=== PATIENT | female | born 1950 | race Hispanic/Latino ===

== ENCOUNTER 2019-12-18 10:12 | Inpatient (IN) | payer MEDICARE, OTHER ==
[2019-12-18] MEDS ORDERED: SODIUM CHLORIDE 0.9% 1000 ML 1,000 ML IV ONE (11:12)
--- NOTE | 2019-12-18 11:36 | XRay Report ---
CHEST 1 VIEW INDICATION / CLINICAL INFORMATION: weakness. COMPARISON: None available. FINDINGS: SUPPORT DEVICES: Left central venous line HEART / MEDIASTINUM: No significant abnormality. LUNGS / PLEURA: No significant pulmonary or pleural abnormality. No pneumothorax. ADDITIONAL FINDINGS: No significant additional findings. IMPRESSION: No acute pulmonary or pleural abnormality. Signer Name: Rick Castañeda MD FACR Signed: 12/18/2019 11:31 AM Workstation Name: [id number]
--- NOTE | 2019-12-18 13:21 | Emergency Department Report ---
- General Chief complaint: Weakness Stated complaint: WEAKNESS Time Seen by Provider: 12/18/19 10:56 Source: patient, EMS Mode of arrival: Stretcher Limitations: Physical Limitation - History of Present Illness Initial comments: 69-year-old female, history of diabetes and lymphedema, presents to ED with generalized weakness since yesterday. Patient states today her had to help her off of the toilet because she was so generally weak. Patient also complaining of pain in the left leg. There is redness present. Patient is unsure when the redness began, she states maybe yesterday. She denies any fever, chest pain, shortness of breath, vomiting, diarrhea. MD Complaint: generalized weakness -: days(s) (2) Location: generalized Severity scale (0 -10): 0 Consistency: constant Improves with: none Worsens with: none Associated Symptoms: denies: chest pain, fever/chills, nausea/vomiting, shortness of breath - Related Data Previous Rx's Medication Instructions Recorded Last Taken Type Cyclobenzaprine [Flexeril 10mg] 10 mg PO TID PRN #12 tablet 09/08/13 Unknown Rx oxyCODONE /ACETAMINOPHEN [Percocet 1 tab PO Q6HR PRN #20 tablet 09/08/13 Unknown Rx 5/325] Allergies Allergy/AdvReac Type Severity Reaction Status Date / Time No Known Allergies Allergy Unverified 09/07/13 18:45 ED Review of Systems ROS: Stated complaint: WEAKNESS Other details as noted in HPI Comment: All other systems reviewed and negative Constitutional: denies: chills, fever Respiratory: denies: cough, shortness of breath Cardiovascular: denies: chest pain Gastrointestinal: denies: abdominal pain, vomiting, diarrhea Musculoskeletal: as per HPI ED Past Medical Hx - Past Medical History Hx Diabetes: Yes - Surgical History Additional Surgical History: x 3. partial hysterectomy. bilateral h ip replacement. port placement. lump and 25 lymph nodes removed. left shoulder surgery - Social History Smoking Status: Never Smoker Substance Use Type: None - Medications Home Medications: Home Medications Medication Instructions Recorded Confirmed Last Taken Type Cyclobenzaprine [Flexeril 10mg] 10 mg PO TID PRN #12 tablet 09/08/13 Unknown Rx oxyCODONE /ACETAMINOPHEN [Percocet 1 tab PO Q6HR PRN #20 tablet 09/08/13 Unknown Rx 5/325] ED Physical Exam - General Limitations: Physical Limitation General appearance: alert, in no apparent distress - Head Head exam: Present: atraumatic, normocephalic - Eye Eye exam: Present: normal appearance - ENT ENT exam: Present: mucous membranes dry - Neck Neck exam: Present: normal inspection - Respiratory Respiratory exam: Present: normal lung sounds bilaterally. Absent: respiratory distress - Cardiovascular Cardiovascular Exam: Present: normal rhythm, tachycardia - GI/Abdominal GI/Abdominal exam: Present: soft. Absent: distended, tenderness - Extremities Exam Extremities exam: Present: other (Erythema present to left lower leg with tenderness to palpation) - Neurological Exam Neurological exam: Present: alert, oriented X3 - Psychiatric Psychiatric exam: Present: normal affect, normal mood - Skin Skin exam: Present: warm, dry, intact, normal color ED Course Vital Signs 12/18/19 12/18/19 12/18/19 10:27 10:31 10:39 Temperature 97.8 F Pulse Rate 106 H 104 H 102 H Respiratory 15 18 19 Rate Blood Pressure 130/58 Blood Pressure 130/58 [Left] O2 Sat by Pulse 100 100 99 Oximetry 12/18/19 12/18/19 12/18/19 10:45 11:00 11:15 Temperature Pulse Rate 94 H 90 103 H Respiratory 14 19 20 Rate Blood Pressure 130/58 126/54 126/54 Blood Pressure [Left] O2 Sat by Pulse 100 100 100 Oximetry 12/18/19 12/18/19 12/18/19 11:31 11:45 12:01 Temperature Pulse Rate 101 H 102 H 96 H Respiratory 19 21 19 Rate Blood Pressure 126/54 126/54 116/56 Blood Pressure [Left] O2 Sat by Pulse 100 100 100 Oximetry 12/18/19 12/18/19 12/18/19 12:16 12:31 12:45 Temperature Pulse Rate 97 H 109 H 107 H Respiratory 19 12 18 Rate Blood Pressure 116/56 116/56 Blood Pressure [Left] O2 Sat by Pulse 100 100 100 Oximetry 12/18/19 12/18/19 12/18/19 13:01 13:15 13:31 Temperature Pulse Rate 107 H 106 H 100 H Respiratory 22 20 21 Rate Blood Pressure 135/54 135/54 135/54 Blood Pressure [Left] O2 Sat by Pulse 100 100 100 Oximetry 12/18/19 12/18/19 12/18/19 13:45 14:00 14:15 Temperature Pulse Rate 118 H 104 H 111 H Respiratory 20 19 18 Rate Blood Pressure 135/54 121/61 121/61 Blood Pressure [Left] O2 Sat by Pulse 100 100 99 Oximetry 12/18/19 12/18/19 12/18/19 14:31 14:45 15:01 Temperature Pulse Rate 92 H 108 H 106 H Respiratory 19 18 20 Rate Blood Pressure 121/61 121/61 128/63 Blood Pressure [Left] O2 Sat by Pulse 98 99 99 Oximetry 12/18/19 12/18/19 12/18/19 15:15 15:45 16:01 Temperature Pulse Rate 109 H 107 H 92 H Respiratory 19 14 21 Rate Blood Pressure 128/63 128/63 128/63 Blood Pressure [Left] O2 Sat by Pulse 96 99 94 Oximetry 12/18/19 12/18/19 12/18/19 16:15 16:31 16:45 Temperature Pulse Rate 94 H 97 H 92 H Respiratory 20 19 18 Rate Blood Pressure 128/63 128/63 128/63 Blood Pressure [Left] O2 Sat by Pulse 96 96 97 Oximetry 12/18/19 12/18/19 17:01 17:31 Temperature Pulse Rate 109 H 105 H Respiratory 19 16 Rate Blood Pressure 128/63 128/63 Blood Pressure [Left] O2 Sat by Pulse 98 91 Oximetry ED Medical Decision Making - Lab Data Result diagrams: 12/18/19 12:49 12/18/19 12:49 - Medical Decision Making 69-year-old female presents to ED with generalized weakness and pain and redness to the left leg. Patient has extensive cellulitis located in the left lower leg. Vital signs are stable, patient afebrile. WBCs elevated to 19.9. Glucose is slightly elevated at 180, however patient does not appear to be in DKA. IV clindamycin initiated for cellulitis. Spoke with hospitalist, Dr. Monson, for admission and further management. Dr. Monson would like CT of the lower extremity to further assess extent of patient's cellulitis. - Differential Diagnosis Dehydration, DKA, cellulitis Critical care attestation.: If time is entered above; I have spent that time in minutes in the direct care of this critically ill patient, excluding procedure time. ED Disposition Clinical Impression: Cellulitis of left leg, Generalized weakness Disposition: - OP ADMIT IP TO THIS HOSP Is pt being admited?: Yes Condition: Stable Time of Disposition: 15:19
[2019-12-18 13:31] LABS: Hematocrit 38.1 % (30.3-42.9); Hemoglobin 13.1 gm/dl (10.1-14.3); Mean Corpuscular HGB Conc 35 % (30-34); Mean Corpuscular Volume 95 fl (79-97); Platelet Count 140 K/mm3 (140-440); Red Blood Count 4.03 M/mm3 (3.65-5.03); Red Cell Distribution Width 14.8 % (13.2-15.2)
[2019-12-18 13:51] LABS: BUN/Creatinine Ratio 34; Blood Urea Nitrogen 31 mg/dL (7-17); Calcium 10.6 mg/dL (8.4-10.2); Hemolysis Index 10
--- NOTE | 2019-12-18 14:59 | History and Physical Report ---
History of Present Illness Chief complaint: My leg hurts and I feel weak History of present illness: 69 YO Female with DM, Obesity Hypoventilation Syndrome, Lymphedema, Chronic Pain Syndrome presents to ED for evaluation. Patient states that she has experienced redness and pain to her left leg over the past 4 days with persistently worsening symptoms over the same timeframe. Patient also acknowledges generalized weakness. Patient states that she is unable to bear weight on the left leg without pain. EMS was notified and upon arrival the patient was found to be in distress and subsequently transported to [facility] for further care and evaluation of the aforementioned symptoms. Patient seen and evaluated in the e mergency department. All lab and imaging studies reviewed. Patient found to have left lower extremity cellulitis complicated by sepsis, metabolic acidosis. Patient initiated on sepsis protocol and admitted to medical floor. CT scan of the left lower extremity is ordered in the emergency department and is pending at the time of my admission. Patient denies fever, chills, chest pain, palpitations, productive cough, recent ill contacts, or known exposure to COVID- 19. All medication listed at time of admission has been reconciled. No prior admission for review. Advanced care planning conducted in the emergency department. Past History Past Medical History: diabetes, other (See HPI) Past Surgical History: , hysterectomy, total hip replacement, Other (. port placement. lump and 25 lymph nodes removed. left shoulder surgery) Social history: . denies: smoking, alcohol abuse, prescription drug abuse Family history: diabetes, hypertension Medications and Allergies Allergies Allergy/AdvReac Type Severity Reaction Status Date / Time No Known Allergies Allergy Unverified 09/07/13 18:45 Home Medications Medication Instructions Recorded Confirmed Last Taken Type Cyclobenzaprine [Flexeril 10mg] 10 mg PO TID PRN #12 tablet 09/08/13 Unknown Rx oxyCODONE /ACETAMINOPHEN [Percocet 1 tab PO Q6HR PRN #20 tablet 09/08/13 Unknown Rx 5/325] Review of Systems Constitutional: no weight loss, no weight gain, no fever, no chills Ears, nose, mouth and throat: no ear pain, no ear discharge, no tinnitis, no decreased hearing, no nose pain, no nasal congestion Breasts: no change in shape, no swelling, no mass Cardiovascular: no chest pain, no orthopnea, no palpitations, no rapid/irregular heart beat, no edema Respiratory: no cough, no cough with sputum, no excessive sputum, no hemoptysis Gastrointestinal: no abdominal pain, no nausea, no diarrhea, no coffee ground emesis Genitourinary Female: no pelvic pain, no flank pain, no dysuria Rectal: no pain, no incontinence, no bleeding Musculoskeletal: no neck stiffness, no neck pain, no shooting arm pain, no arm numbness/tingling, no low back pain Integumentary: no rash, no pruritis, no redness, no sores, no wounds Neurological: no head injury, no paralysis, no parathesias, no tingling, no seizures, no syncope Psychiatric: no anxiety, no memory loss, no sleep disturbances, no insomnia, no hypersomnia, no suicidal ideation Endocrine: no cold intolerance, no heat intolerance, no polyphagia, no excessive thirst, no polyuria, no nocturia Hematologic/Lymphatic: no easy bruising, no easy bleeding, no lymphedema Allergic/Immunologic: no allergic rhinitis, no wheezing, no anaphylaxis, no angioedema Exam - Constitutional Vitals: Temp Pulse Resp BP Pulse Ox 97.8 F 102 H 19 130/58 99 12/18/19 10:39 12/18/19 10:39 12/18/19 10:39 12/18/19 10:39 12/18/19 10:39 General appearance: Present: mild distress - EENT Eyes: Present: PERRL ENT: hearing intact, clear oral mucosa - Neck Neck: Present: supple, normal ROM - Respiratory Respiratory effort: normal Respiratory: bilateral: CTA - Cardiovascular Heart Sounds: Present: S1 & S2. Absent: rub, click - Extremities Extremities: pulses symmetrical Extremity abnormal: edema, erythema, tenderness Peripheral Pulses: abnormal (Capillary refill greater than 3.5 seconds) - Abdominal General gastrointestinal: Present: soft, non-tender, non-distended, normal bowel sounds Female genitourinary: Present: normal - Integumentary Integumentary: Present: clear, warm, dry - Musculoskeletal Musculoskeletal: gait normal, strength equal bilaterally - Psychiatric Psychiatric: appropriate mood/affect, intact judgment & insight - Neurologic Neurologic: CNII-XII intact, moves all extremities HEART Score - HEART Score Troponin: Troponin T < 0.010 ng/mL (0.00-0.029) 12/18/19 12:49 Results - Labs CBC & Chem 7: 12/18/19 12:49 12/18/19 12:49 Labs: Abnormal lab results 12/18/19 12/18/19 12/18/19 Range/Units 12:49 12:49 12:49 WBC 19.9 H (4.5-11.0) K/mm3 MCH 33 H (28-32) pg MCHC 35 H (30-34) % VBG pH (7.320-7.420) Carbon Dioxide 20 L (22-30) mmol/L BUN 31 H (7-17) mg/dL Glucose 180 H (65-100) mg/dL Calcium 10.6 H (8.4-10.2) mg/dL NT-Pro-B Natriuret Pep 1930 H (0-900) pg/mL 12/18/19 Range/Units 12:49 WBC (4.5-11.0) K/mm3 MCH (28-32) pg MCHC (30-34) % VBG pH 7.304 L (7.320-7.420) Carbon Dioxide (22-30) mmol/L BUN (7-17) mg/dL Glucose (65-100) mg/dL Calcium (8.4-10.2) mg/dL NT-Pro-B Natriuret Pep (0-900) pg/mL Assessment and Plan - Patient Problems (1) Sepsis Current Visit: Yes Status: Acute (2) Acidosis Current Visit: Yes Status: Acute (3) Diabetes mellitus Current Visit: Yes Status: Acute Plan to address problem: Sliding scale insulin therapy, Accu-Chek, consistent carbohydrate diet, hypoglycemia protocol (4) Cellulitis of left leg Current Visit: Yes Status: Acute Plan to address problem: CT scan left lower extremity, CBC, IV antibiotic therapy, wound care consulted. (5) Chronic pain syndrome Current Visit: Yes Status: Acute Plan to address problem: Supportive care, pain regimen ordered. Nursing care pain evaluation as per routine. (6) DVT prophylaxis Current Visit: Yes Status: Acute Plan to address problem: Prophylactic anticoagulation, supportive care. (7) Advance care planning Current Visit: Yes Status: Acute Plan to address problem: Disease education conducted, patient is full code, prognosis discussed, patient knowledges understanding and agreement with care plan, +30 minutes.
[2019-12-18 15:32] LABS: Anisocytosis Few; Band Neutrophils # (Manual) 4.2 K/mm3; Basophils % (Manual) 0 % (0.0-1.8); Eosinophils % (Manual) 0 % (0.0-4.3); Macrocytosis Few; Total Cells Counted 100
[2019-12-18 15:33] LABS: Platelet Estimate Consistent w Auto
[2019-12-18] MEDS ORDERED: ONDANSETRON 4 MG/2 ML INJ IV PRN (16:04)
[2019-12-18] MEDS ORDERED: MORPHINE 4 MG/1 ML INJ IV PRN (16:04)
[2019-12-18] MEDS ORDERED: ALBUTEROL 2.5 MG/3 ML NEBU IH PRN (16:04)
[2019-12-18] MEDS ORDERED: ACETAMINOPHEN 325 MG TAB PO PRN ×2 (16:04)
[2019-12-18] MEDS ORDERED: SODIUM CHLORIDE 0.9% 1000 ML IV SOLN IV ONE (16:04)
--- NOTE | 2019-12-18 16:15 | Cat Scan Report ---
CT LOWER EXTREMITY LEFT WITH CONTRAST INDICATION : swelling, erythema. TECHNIQUE: Axial imaging performed through the left lower extremity following 100 cc of Omnipaque 30 0 intravenously. Sagittal and coronal reformatted images. All CT scans at this location are performed using CT dose reduction for ALARA by means of automated exposure control. COMPARISON: None at this facility FINDINGS: Imaging was performed just superior to the left knee through the left foot. There is nonspe cific diffuse subcutaneous edema and skin thickening in the visualized left lower extremity. This cou ld represent a nonspecific cellulitis. There is no evidence for abscess or soft tissue gas. The bony structures are mildly demineralized but intact. No fracture or suspicious bony lesion is appreciated. Moderate osteoarthritic changes are identified at the knee and ankle. A focal bone infarct in the la teral femoral condyle measures 2.0 x 1.4 cm in axial plane. The vascular structures appear widely pat ent and unremarkable. IMPRESSION: Diffuse subcutaneous edema and skin thickening consistent with cellulitis. No evidence fo r abscess or osteomyelitis on CT with contrast. Degenerative changes at the knee and ankle. 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 Signer Name: Mert Medina Jr, MD Signed: 12/18/2019 4:10 PM Workstation Name: [id number]
[2019-12-18] MEDS ORDERED: DEXTROSE 50% IN WATER (25GM) 50 ML SYRINGE IV PRN (16:16)
[2019-12-18] MEDS ORDERED: VANCOMYCIN 2,000 MG in SODIUM CHLORIDE 0.9% 500 ML 500 ML IV ONE (16:30)
[2019-12-18] MEDS ORDERED: SODIUM CHLORIDE 0.9% 1000 ML 1,000 ML ONE (16:51)
[2019-12-18] MEDS: INSULIN LISPRO 100 UNIT/ML VIAL 3 mL SUB-Q SCH ×2 (17:00→23:13)
[2019-12-18] MEDS ORDERED: VANCOMYCIN PHARMACY TO DOSE IV SCH (17:00)
[2019-12-18] MEDS ORDERED: HYDROmorphone 1 MG/1 ML INJ ONE (17:19)
[2019-12-18] MEDS: HYDROmorphone 1 MG/1 ML INJ IV PRN (17:26)
[2019-12-18] MEDS: oxyCODONE /ACETAMINOPHEN 5-325MG TAB PO PRN (20:16)
[2019-12-18] MEDS: SODIUM CHLORIDE 0.9% 1000 ML 1,000 ML IV SCH (22:54)
[2019-12-18] MEDS: HEPARIN 5,000 UNIT/1 ML VIAL SUB-Q SCH (22:55)
[2019-12-18] MEDS: CLINDAMYCIN 600 MG/50 mL 600 MG/50 ML BAG IV SCH (22:55)
[2019-12-19] MEDS ORDERED: VANCOMYCIN/NS 1 GM/250 ML 1 GM/250 ML BAG IV SCH (04:00)
[2019-12-19] MEDS: CLINDAMYCIN 600 MG/50 mL 600 MG/50 ML BAG IV SCH ×3 (05:06→21:40)
[2019-12-19] MEDS: oxyCODONE /ACETAMINOPHEN 5-325MG TAB PO PRN ×2 (06:47→22:40)
[2019-12-19 07:12] LABS: Bacteria,Urine 4+ /HPF (Negative); Bilirubin,Urine NEG (Negative); Blood,Urine NEG (Negative); Color,Urine Amber (Yellow); Mucus,Urine FEW /HPF; Urobilinogen,Urine < 2.0 mg/dL (<2.0)
[2019-12-19] MEDS: INSULIN LISPRO 100 UNIT/ML VIAL 3 mL SUB-Q SCH ×4 (07:30→21:34)
[2019-12-19] MEDS: HEPARIN 5,000 UNIT/1 ML VIAL SUB-Q SCH ×2 (10:48→21:32)
[2019-12-19] MEDS: SODIUM CHLORIDE 0.9% 1000 ML 1,000 ML IV SCH (19:52)
[2019-12-19] MEDS: VANCOMYCIN 1,500 MG in SODIUM CHLORIDE 0.9% 500 ML 500 ML IV SCH (21:31)
[2019-12-19 23:30] LABS: BUN/Creatinine Ratio 32; Blood Urea Nitrogen 29 mg/dL (7-17); Calcium 8.9 mg/dL (8.4-10.2); Hemolysis Index 5
[2019-12-19 23:42] LABS: Hematocrit 29.2 % (30.3-42.9); Hemoglobin 10.2 gm/dl (10.1-14.3); Mean Corpuscular HGB Conc 35 % (30-34); Mean Corpuscular Volume 94 fl (79-97); Platelet Count 115 K/mm3 (140-440); Red Blood Count 3.11 M/mm3 (3.65-5.03); Red Cell Distribution Width 14.7 % (13.2-15.2)
[2019-12-20 03:35] LABS: Basophils % (Manual) 0 % (0.0-1.8); Total Cells Counted 100
[2019-12-20 03:36] LABS: Anisocytosis Few
[2019-12-20 03:37] LABS: Platelet Estimate Consistent w Auto
[2019-12-20] MEDS: HYDROmorphone 1 MG/1 ML INJ IV PRN (03:47)
[2019-12-20] MEDS: CLINDAMYCIN 600 MG/50 mL 600 MG/50 ML BAG IV SCH ×3 (05:51→22:22)
[2019-12-20] MEDS: INSULIN LISPRO 100 UNIT/ML VIAL 3 mL SUB-Q SCH ×4 (07:30→22:00)
[2019-12-20] MEDS: HEPARIN 5,000 UNIT/1 ML VIAL SUB-Q SCH ×2 (09:30→22:23)
--- NOTE | 2019-12-20 09:40 | Progress Note ---
Assessment and Plan Assessment and Plan - Patient Problems (1) Sepsis Current Visit: Yes Status: Acute Continue current antibiotics (2) Acidosis Current Visit: Yes Status: Acute (3) Diabetes mellitus Current Visit: Yes Status: Acute Plan to address problem: Sliding scale insulin therapy, Accu-Chek, consistent carbohydrate diet, hypoglycemia protocol (4) Cellulitis of left leg Current Visit: Yes Status: Acute Plan to address problem: Continue current IV antibiotics Also triamcinolone cream for the stasis dermatitis (5) Chronic pain syndrome Current Visit: Yes Status: Acute Plan to address problem: Supportive care, pain regimen ordered. Nursing care pain evaluation as per routine. (6) DVT prophylaxis Current Visit: Yes Status: Acute Plan to address problem: Prophylactic anticoagulation, supportive care. (7) Advance care planning Current Visit: Yes Status: Acute Plan to address problem: Disease education conducted, patient is full code, prognosis discussed, patient knowledges understanding and agreement with care plan, +30 minutes. Subjective Date of service: 12/19/19 Principal diagnosis: LLE Cellulitis Interval history: 69 YO Female with DM, Obesity Hypoventilation Syndrome, Lymphedema, Chronic Pain Syndrome presents to ED for evaluation. Patient states that she has experienced redness and pain to her left leg over the past 4 days with persistently worsening symptoms over the same timeframe. Patient also acknowledges generalized weakness. Patient states that she is unable to bear weight on the left leg without pain. EMS was notified and upon arrival the patient was found to be in distress and subsequently transported to [facility] for further care and evaluation of the aforementioned symptoms. Patient seen and evaluated in the emergency department. All lab and imaging studies reviewed. Patient found to have left lower extremity cellulitis complicated by sepsis, metabolic acidosis. Patient initiated on sepsis protocol and admitted to medical floor. CT scan of the left lower extremity is ordered in the emergency department and is pending at the time of my admission. Patient denies fever, chills, chest pain, palpitations, productive cough, recent ill contacts, or known exposure to COVID- 19. All medication listed at time of admission has been reconciled. No prior admission for review. Advanced care planning conducted in the emergency department. Objective - Constitutional Vitals: Vital Signs - 12hr 12/19/19 12/19/19 12/19/19 22:00 22:40 23:40 Temperature Pulse Rate Respiratory 19 19 17 Rate Blood Pressure O2 Sat by Pulse 97 Oximetry 12/20/19 12/20/19 12/20/19 03:47 04:17 04:30 Temperature 98.3 F Pulse Rate 82 Respiratory 18 17 16 Rate Blood Pressure 134/62 O2 Sat by Pulse 91 Oximetry 12/20/19 06:37 Temperature Pulse Rate Respiratory Rate Blood Pressure O2 Sat by Pulse 96 Oximetry General appearance: Present: no acute distress, well-nourished - EENT Eyes: PERRL, EOM intact ENT: hearing intact, clear oral mucosa Ears: bilateral: normal - Neck Neck: supple, normal ROM - Respiratory Respiratory effort: normal Respiratory: bilateral: CTA - Breasts Breasts: normal - Cardiovascular Heart rate: 78 Rhythm: regular Heart Sounds: Present: S1 & S2. Absent: gallop, rub Extremities: pulses intact, No edema, normal color, Full ROM, abnormal (Stasis dermatitis) - Gastrointestinal General gastrointestinal: Present: soft, non-tender, non-distended, normal bowel sounds - Genitourinary Female genitourinary: normal - Integumentary Integumentary: clear, warm, dry - Musculoskeletal Musculoskeletal: 1, strength equal bilaterally - Neurologic Neurologic: moves all extremities - Psychiatric Psychiatric: memory intact, appropriate mood/affect, intact judgment & insight - Labs CBC & Chem 7: 12/23/19 08:32 12/23/19 08:32 Labs: Abnormal lab results 12/19/19 12/19/19 12/19/19 Range/Units 11:34 16:43 21:35 WBC (4.5-11.0) K/mm3 RBC (3.65-5.03) M/mm3 Hct (30.3-42.9) % MCH (28-32) pg MCHC (30-34) % Plt Count (140-440) K/mm3 Seg Neuts % (Manual) (40.0-70.0) % Lymphocytes % (Manual) (13.4-35.0) % Seg Neutrophils # Man (1.8-7.7) K/mm3 Lymphocytes # (Manual) (1.2-5.4) K/mm3 Sodium (137-145) mmol/L Carbon Dioxide (22-30) mmol/L BUN (7-17) mg/dL Glucose (65-100) mg/dL POC Glucose 133 H 137 H 188 H (70-105) 1012/19/19 12/20/19 Range/Units 22:51 22:51 07:50 WBC 16.0 H (4.5-11.0) K/mm3 RBC 3.11 L (3.65-5.03) M/mm3 Hct 29.2 L D (30.3-42.9) % MCH 33 H (28-32) pg MCHC 35 H (30-34) % Plt Count 115 L (140-440) K/mm3 Seg Neuts % (Manual) 91.0 H (40.0-70.0) % Lymphocytes % (Manual) 4.0 L (13.4-35.0) % Seg Neutrophils # Man 14.6 H (1.8-7.7) K/mm3 Lymphocytes # (Manual) 0.6 L (1.2-5.4) K/mm3 Sodium 136 L (137-145) mmol/L Carbon Dioxide 20 L (22-30) mmol/L BUN 29 H (7-17) mg/dL Glucose 127 H (65-100) mg/dL POC Glucose 116 H (70-105) HEART Score - HEART Score Troponin: Troponin T < 0.010 ng/mL (0.00-0.029) 12/18/19 12:49
[2019-12-20] MEDS: oxyCODONE /ACETAMINOPHEN 5-325MG TAB PO PRN ×2 (15:13→22:23)
[2019-12-20] MEDS: VANCOMYCIN 1,500 MG in SODIUM CHLORIDE 0.9% 500 ML 500 ML IV SCH (22:22)
[2019-12-21] MEDS: oxyCODONE /ACETAMINOPHEN 5-325MG TAB PO PRN ×3 (04:30→18:25)
[2019-12-21] MEDS: CLINDAMYCIN 600 MG/50 mL 600 MG/50 ML BAG IV SCH ×3 (05:35→21:03)
[2019-12-21] MEDS: INSULIN LISPRO 100 UNIT/ML VIAL 3 mL SUB-Q SCH ×4 (07:30→22:45)
[2019-12-21] MEDS: HEPARIN 5,000 UNIT/1 ML VIAL SUB-Q SCH ×2 (10:00→21:07)
[2019-12-21] MEDS: SODIUM CHLORIDE 0.9% 1000 ML 1,000 ML IV SCH (18:26)
[2019-12-21] MEDS: VANCOMYCIN 1,500 MG in SODIUM CHLORIDE 0.9% 500 ML 500 ML IV SCH (21:03)
[2019-12-22] MEDS: oxyCODONE /ACETAMINOPHEN 5-325MG TAB PO PRN ×4 (00:15→18:26)
[2019-12-22] MEDS: CLINDAMYCIN 600 MG/50 mL 600 MG/50 ML BAG IV SCH ×2 (05:28→14:00)
[2019-12-22] MEDS: SODIUM CHLORIDE 0.9% 1000 ML 1,000 ML IV SCH (05:31)
[2019-12-22] MEDS: INSULIN LISPRO 100 UNIT/ML VIAL 3 mL SUB-Q SCH ×4 (07:30→22:36)
[2019-12-22] MEDS: HEPARIN 5,000 UNIT/1 ML VIAL SUB-Q SCH (09:55)
[2019-12-22] MEDS ORDERED: FUROSEMIDE 40 MG/4 ML INJ IV SCH (11:00)
[2019-12-22] MEDS: FUROSEMIDE 100 MG/10 ML INJ IV ONE ×2 (11:58→12:01)
[2019-12-22] MEDS ORDERED: FUROSEMIDE 100 MG/10 ML INJ IV ONE (12:00)
--- NOTE | 2019-12-22 15:48 | Progress Note ---
Assessment and Plan Assessment and Plan - Patient Problems (1) Sepsis Patient on IV antibiotics Patient also has urinary tract infection complicated by Klebsiella pneumonia (2) urinary tract infection with Klebsiella pneumonia Current Visit: Yes Status: Acute Patient started on IV cefepime day (3) Diabetes mellitus Current Visit: Yes Status: Acute Plan to address problem: Sliding scale insulin therapy, Accu-Chek, consistent carbohydrate diet, hypoglycemia protocol (4) Cellulitis of left leg Current Visit: Yes Status: Acute Plan to address problem: CT scan left lower extremity, CBC, IV antibiotic therapy, wound care consulted. (5) Chronic pain syndrome Current Visit: Yes Status: Acute Plan to address problem: Supportive care, pain regimen ordered. Nursing care pain evaluation as per routine. (6) DVT prophylaxis Current Visit: Yes Status: Acute Plan to address problem: Prophylactic anticoagulation, supportive care. (7 stasis dermatitis Triamcinolone cream to be applied twice daily Subjective Date of service: 12/22/19 Principal diagnosis: Left lower extremity cellulitis/Klebsiella pneumonia urinary tract infectio Interval history: 69 YO Female with DM, Obesity Hypoventilation Syndrome, Lymphedema, Chronic Pain Syndrome presents to ED for evaluation. Patient states that she has experienced redness and pain to her left leg over the past 4 days with persistently worsening symptoms over the same timeframe. Patient also acknowledges generalized weakness. Patient states that she is unable to bear weight on the left leg without pain. EMS was notified and upon arrival the patient was found to be in distress and subsequently transported to [facility] for further care and evaluation of the aforementioned symptoms. Patient seen and evaluated in the emergency department. All lab and imaging studies reviewed. Patient found to have left lower extremity cellulitis complicated by sepsis, metabolic acidosis. Patient initiated on sepsis protocol and admitted to medical floor. CT scan of the left lower extremity is ordered in the emergency department and is pending at the time of my admission. Patient denies fever, chills, chest pain, palpitations, productive cough, recent ill contacts, or known exposure to COVID- 19. All medication listed at time of admission has been reconciled. No prior admission for review. Advanced care planning conducted in the emergency department. Urine culture showed Klebsiella pneumonia sensitive to cefepime and Bactrim Patient started on cefepime Objective - Constitutional Vitals: Vital Signs - 12hr 12/22/19 12/22/19 12/22/19 06:02 06:16 10:27 Temperature 98.6 F Pulse Rate 72 Pulse Rate [ 100 H Anterior Bilateral Throughout] Respiratory 18 18 Rate Respiratory 18 Rate [Anterior Bilateral Throughout] Blood Pressure 128/70 O2 Sat by Pulse 93 Oximetry 12/22/19 11:25 Temperature 98.1 F Pulse Rate 82 Pulse Rate [ Anterior Bilateral Throughout] Respiratory 24 Rate Respiratory Rate [Anterior Bilateral Throughout] Blood Pressure 162/68 O2 Sat by Pulse 94 Oximetry General appearance: Present: no acute distress, well-nourished - EENT Eyes: PERRL, EOM intact ENT: hearing intact, clear oral mucosa Ears: bilateral: normal - Neck Neck: supple, normal ROM - Respiratory Respiratory effort: normal Respiratory: bilateral: CTA - Breasts Breasts: normal - Cardiovascular Rhythm: regular Heart Sounds: Present: S1 & S2. Absent: gallop, rub Extremities: pulses intact, No edema, normal color, Full ROM, abnormal (Bilateral stasis dermatitis) - Gastrointestinal General gastrointestinal: Present: soft, non-tender, non-distended, normal bowel sounds - Genitourinary Female genitourinary: normal - Integumentary Integumentary: clear, warm, dry - Musculoskeletal Musculoskeletal: 1, strength equal bilaterally - Neurologic Neurologic: moves all extremities - Psychiatric Psychiatric: memory intact, appropriate mood/affect, intact judgment & insight - Labs CBC & Chem 7: 12/23/19 08:32 12/23/19 08:32 Labs: Abnormal lab results 12/21/19 12/21/19 12/22/19 Range/Units 17:16 21:45 11:12 POC Glucose 165 H 160 H 143 H (70-105) HEART Score - HEART Score Troponin: Troponin T < 0.010 ng/mL (0.00-0.029) 12/18/19 12:49
--- NOTE | 2019-12-22 15:48 | Progress Note ---
Assessment and Plan Assessment and Plan - Patient Problems (1) Sepsis Current Visit: Yes Status: Acute (2) Acidosis Current Visit: Yes Status: Acute (3) Diabetes mellitus Current Visit: Yes Status: Acute Plan to address problem: Sliding scale insulin therapy, Accu-Chek, consistent carbohydrate diet, hypoglycemia protocol (4) Cellulitis of left leg Current Visit: Yes Status: Acute Plan to address problem: Continue IV antibiotics (5) Chronic pain syndrome Current Visit: Yes Status: Acute Plan to address problem: Supportive care, pain regimen ordered. Nursing care pain evaluation as per shantell jesus. (6) DVT prophylaxis Current Visit: Yes Status: Acute Plan to address problem: Prophylactic anticoagulation, supportive care. (7) Advance care planning Current Visit: Yes Status: Acute Plan to address problem: Disease education conducted, patient is full code, prognosis discussed, patient knowledges understanding and agreement with care plan, +30 minutes. Subjective Date of service: 12/20/19 Principal diagnosis: Left lower extremity cellulitis Interval history: 69 YO Female with DM, Obesity Hypoventilation Syndrome, Lymphedema, Chronic Pain Syndrome presents to ED for evaluation. Patient states that she has experienced redness and pain to her left leg over the past 4 days with persistently worsening symptoms over the same timeframe. Patient also acknowledges generalized weakness. Patient states that she is unable to bear weight on the left leg without pain. EMS was notified and upon arrival the patient was found to be in distress and subsequently transported to [facility] for further care and evaluation of the aforementioned symptoms. Patient seen and evaluated in the emergency department. All lab and imaging studies reviewed. Patient found to have left lower extremity cellulitis complicated by sepsis, metabolic acidosis. Patient initiated on sepsis protocol and admitted to medical floor. CT scan of the left lower extremity is ordered in the emergency department and is pending at the time of my admission. Patient denies fever, chills, chest pain, palpitations, productive cough, recent ill contacts, or known exposure to COVID- 19. All medication listed at time of admission has been reconciled. No prior admission for review. Advanced care planning conducted in the emergency depar tment. Objective - Constitutional Vitals: Vital Signs - 12hr 12/22/19 12/22/19 12/22/19 06:02 06:16 10:27 Temperature 98.6 F Pulse Rate 72 Pulse Rate [ 100 H Anterior Bilateral Throughout] Respiratory 18 18 Rate Respiratory 18 Rate [Anterior Bilateral Throughout] Blood Pressure 128/70 O2 Sat by Pulse 93 Oximetry 12/22/19 11:25 Temperature 98.1 F Pulse Rate 82 Pulse Rate [ Anterior Bilateral Throughout] Respiratory 24 Rate Respiratory Rate [Anterior Bilateral Throughout] Blood Pressure 162/68 O2 Sat by Pulse 94 Oximetry General appearance: Present: no acute distress, well-nourished - EENT Eyes: PERRL, EOM intact ENT: hearing intact, clear oral mucosa Ears: bilateral: normal - Neck Neck: supple, normal ROM - Respiratory Respiratory effort: normal Respiratory: bilateral: CTA - Breasts Breasts: normal - Cardiovascular Rhythm: regular Heart Sounds: Present: S1 & S2. Absent: gallop, rub Extremities: pulses intact, No edema, normal color, Full ROM, abnormal (Bilate ral stasis dermatitis) Extremity abnormal: other - Gastrointestinal General gastrointestinal: Present: soft, non-tender, non-distended, normal bowel sounds - Genitourinary Female genitourinary: normal - Integumentary Integumentary: clear, warm, dry - Musculoskeletal Musculoskeletal: 1, strength equal bilaterally - Neurologic Neurologic: moves all extremities - Psychiatric Psychiatric: memory intact, appropriate mood/affect, intact judgment & insight - Labs CBC & Chem 7: 12/23/19 08:32 12/23/19 08:32 Labs: Abnormal lab results 12/21/19 12/21/19 12/22/19 Range/Units 17:16 21:45 11:12 POC Glucose 165 H 160 H 143 H (70-105) HEART Score - HEART Score Troponin: Troponin T < 0.010 ng/mL (0.00-0.029) 12/18/19 12:49
--- NOTE | 2019-12-22 15:48 | Progress Note ---
Assessment and Plan Assessment and Plan - Patient Problems (1) Sepsis Current Visit: Yes Status: Acute Continue IV antibiotics (2) urinary tract infection complicated by Klebsiella pneumonia patient started on cefepime 2 g IV piggyback every 8 hours (3) Diabetes mellitus Current Visit: Yes Status: Acute Plan to address problem: Sliding scale insulin therapy, Accu-Chek, consistent carbohydrate diet, hypoglycemia protocol (4) Cellulitis of left leg Current Visit: Yes Status: Acute Plan to address problem: CT scan left lower extremity, CBC, IV antibiotic therapy, wound care consulted. (5) Chronic pain syndrome Current Visit: Yes Status: Acute Plan to address problem: Supportive care, pain regimen ordered. Nursing care pain evaluation as per routine. (6) DVT prophylaxis Current Visit: Yes Status: Acute Plan to address problem: Prophylactic anticoagulation, supportive care. Subjective Date of service: 12/21/19 Principal diagnosis: Left lower extremity cellulitis, urinary tract infection Interval history: 69 YO Female with DM, Obesity Hypoventilation Syndrome, Lymphedema, Chronic Pain Syndrome presents to ED for evaluation. Patient states that she has experienced redness and pain to her left leg over the past 4 days with persistently worsening symptoms over the same timeframe. Patient also acknowledges generalized weakness. Patient states that she is unable to bear weight on the left leg without pain. EMS was notified and upon arrival the patient was found to be in distress and subsequently transported to [facility] for further care and evaluation of the aforementioned symptoms. Patient seen and evaluated in the emergency department. All lab and imaging studies reviewed. Patient found to have left lower extremity cellulitis complicated by sepsis, metabolic acidosis. Patient initiated on sepsis protocol and admitted to medical floor. CT scan of the left lower extremity is ordered in the emergency department and is pending at the time of my admission. Patient denies fever, chills, chest pain, palpitations, productive cough, recent ill contacts, or known exposure to COVID- 19. All medication listed at time of admission has been reconciled. No prior admission for review. Advanced care planning conducted in the emergency department. Urine culture showed Klebsiella pneumonia sensitive to cefepime and Bactrim Patient started on cefepime Objective - Constitutional Vitals: Vital Signs - 12hr 12/22/19 12/22/19 12/22/19 06:02 06:16 10:27 Temperature 98.6 F Pulse Rate 72 Pulse Rate [ 100 H Anterior Bilateral Throughout] Respiratory 18 18 Rate Respiratory 18 Rate [Anterior Bilateral Throughout] Blood Pressure 128/70 O2 Sat by Pulse 93 Oximetry 12/22/19 11:25 Temperature 98.1 F Pulse Rate 82 Pulse Rate [ Anterior Bilateral Throughout] Respiratory 24 Rate Respiratory Rate [Anterior Bilateral Throughout] Blood Pressure 162/68 O2 Sat by Pulse 94 Oximetry General appearance: Present: no acute distress, well-nourished - EENT Eyes: PERRL, EOM intact ENT: hearing intact, clear oral mucosa Ears: bilateral: normal - Neck Neck: supple, normal ROM - Respiratory Respiratory effort: normal Respiratory: bilateral: CTA - Breasts Breasts: normal - Cardiovascular Rhythm: regular Heart Sounds: Present: S1 & S2. Absent: gallop, rub Extremities: pulses intact, No edema, normal color, Full ROM, abnormal Extremity abnormal: other (Stasis dermatitis none) - Gastrointestinal General gastrointestinal: Present: soft, non-tender, non-distended, normal bowel sounds - Genitourinary Female genitourinary: normal - Integumentary Integumentary: clear, warm, dry - Musculoskeletal Musculoskeletal: 1, strength equal bilaterally - Neurologic Neurologic: moves all extremities - Psychiatric Psychiatric: memory intact, appropriate mood/affect, intact judgment & insight - Labs CBC & Chem 7: 12/23/19 08:32 12/23/19 08:32 Labs: Abnormal lab results 12/21/19 12/21/19 12/22/19 Range/Units 17:16 21:45 11:12 POC Glucose 165 H 160 H 143 H (70-105) HEART Score - HEART Score Troponin: Troponin T < 0.010 ng/mL (0.00-0.029) 12/18/19 12:49
[2019-12-22] MEDS: CEFEPIME/NS 2 GM/100 ML 2 GM/100 ML BAG IV SCH (16:00)
[2019-12-22] MEDS ORDERED: LACTULOSE 20 GM/30 ML ORAL LIQD PO ONE (16:00)
[2019-12-22 21:45] LABS: Blood Urea Nitrogen 13 mg/dL (7-17); Calcium 9.7 mg/dL (8.4-10.2); Hemolysis Index 6
[2019-12-22 21:46] LABS: BUN/Creatinine Ratio 19
[2019-12-23] MEDS: oxyCODONE /ACETAMINOPHEN 5-325MG TAB PO PRN ×3 (00:48→13:36)
[2019-12-23] MEDS: HEPARIN 5,000 UNIT/1 ML VIAL SUB-Q SCH ×2 (00:50→10:40)
[2019-12-23] MEDS: CEFEPIME/NS 2 GM/100 ML 2 GM/100 ML BAG IV SCH ×3 (01:59→18:16)
[2019-12-23] MEDS: INSULIN LISPRO 100 UNIT/ML VIAL 3 mL SUB-Q SCH ×3 (08:23→16:04)
[2019-12-23 09:18] LABS: Hematocrit 32.8 % (30.3-42.9); Hemoglobin 11.6 gm/dl (10.1-14.3); Mean Corpuscular HGB Conc 35 % (30-34); Mean Corpuscular Volume 93 fl (79-97); Platelet Count 139 K/mm3 (140-440); Red Blood Count 3.53 M/mm3 (3.65-5.03); Red Cell Distribution Width 14.3 % (13.2-15.2)
[2019-12-23 09:37] LABS: Blood Urea Nitrogen 12 mg/dL (7-17); Calcium 9.4 mg/dL (8.4-10.2); Hemolysis Index 6
--- NOTE | 2019-12-23 09:38 | Discharge Summary ---
Providers - Providers Date of Admission: 12/18/19 16:04 Date of discharge: 12/23/19 Attending physician: MALIK JO 12/18/19 16:16 Consult to Wound/ET Nurse [CONS] Routine Reason For Exam: wound eval 12/19/19 12:22 Physical Therapy Evaluation and Treat [CONS] Routine Comment: Reason For Exam: Eval and treatment 12/21/19 05:51 Midline [Consult to PICC Line RN] [CONS] Stat Reason For Exam: difficult stick Type Line:: Midline Primary care physician: FIXED WING PILOT Hospitalization Condition: Stable Hospital course: Subjective Date of service: 12/23/19 Principal diagnosis: Left lower extremity cellulitis/Klebsiella pneumonia urinary tract infectio Interval history: 69 YO Female with DM, Obesity Hypoventilation Syndrome, Lymphedema, Chronic Pain Syndrome presents to ED for evaluation. Patient states that she has experienced redness and pain to her left leg over the past 4 days with persistently worsening symptoms over the same timeframe. Patient also acknowledges generalized weakness. Patient states that she is unable to bear weight on the left leg without pain. EMS was notified and upon arrival the patient was found to be in distress and subsequently transported to [facility] for further care and evaluation of the aforementioned symptoms. Patient seen and evaluated in the emergency department. All lab and imaging studies reviewed. Patient found to have left lower extremity cellulitis complicated by sepsis, metabolic acidosis. Patient initiated on sepsis protocol and admitted to medical floor. CT scan of the left lower extremity is ordered in the emergency department and is pending at the time of my admission. Patient denies fever, chills, chest pain, palpitations, productive cough, recent ill contacts, or known exposure to COVID-19. All medication listed at time of admission has been reconciled. No prior admission for review. Advanced care planning conducted in the emergency department. Urine culture showed Klebsiella pneumonia sensitive to cefepime and Bactrim Patient started on cefepime Patient is afebrile and to be discharged on Bactrim DS orally for the next 10 days Klebsiella pneumonia sensitive to Bactrim Patient also to apply triamcinolone cream to the stasis dermatitis left lower extremity cellulitis improved to a large extent. (1) Sepsis Patient on IV antibiotics Patient also has urinary tract infection complicated by Klebsiella pneumonia (2) urinary tract infection with Klebsiella pneumonia Current Visit: Yes Status: Acute Patient started on IV cefepime day (3) Diabetes mellitus Current Visit: Yes Status: Acute Plan to address problem: Sliding scale insulin therapy, Accu-Chek, consistent carbohydrate diet, hypoglycemia protocol (4) Cellulitis of left leg Current Visit: Yes Status: Acute Plan to address problem: CT scan left lower extremity, CBC, IV antibiotic therapy, wound care consulted. (5) Chronic pain syndrome Current Visit: Yes Status: Acute Plan to address problem: Supportive care, pain regimen ordered. Nursing care pain evaluation as per routine. (6) DVT prophylaxis Current Visit: Yes Status: Acute Plan to address problem: Prophylactic anticoagulation, supportive care. (7 stasis dermatitis Triamcinolone cream to be applied twice daily Disposition: - TO HOME OR SELFCARE Time spent for discharge: 35 minutes - Discharge Diagnoses (1) Cellulitis of left leg Status: Acute (2) Sepsis Status: Acute (3) Urinary tract infection due to Klebsiella species Status: Acute Comment: Patient on cefepime. 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 Core Measure Documentation - Palliative Care Palliative Care/ Comfort Measures: Not Applicable - Core Measures Any of the following diagnoses?: none Exam - Constitutional Vitals: Temp Pulse Resp BP Pulse Ox 98.4 F 74 18 153/73 92 12/23/19 05:35 12/23/19 05:35 12/23/19 07:00 12/23/19 05:35 12/23/19 05:35 General appearance: Present: no acute distress, well-nourished - EENT Eyes: Present: PERRL ENT: hearing intact, clear oral mucosa - Neck Neck: Present: supple, normal ROM - Respiratory Respiratory effort: normal Respiratory: bilateral: CTA - Cardiovascular Heart rate: 78 Rhythm: regular Heart Sounds: Present: S1 & S2. Absent: rub, click - Extremities Extremities: no ischemia, pulses intact, pulses symmetrical, No edema Peripheral Pulses: within normal limits - Abdominal General gastrointestinal: Present: soft, non-tender, non-distended, normal bowel sounds Female genitourinary: Present: normal - Integumentary Integumentary: Present: clear, warm, dry - Musculoskeletal Musculoskeletal: gait normal, strength equal bilaterally - Psychiatric Psychiatric: appropriate mood/affect, intact judgment & insight - Neurologic Neurologic: CNII-XII intact, moves all extremities - Allied Health Allied health notes reviewed: nursing, case management Plan Activity: no restrictions Diet: low salt Follow up with: PRIMARY CARE, [Primary Care Provider] - 3-5 Days
[2019-12-23 09:39] LABS: BUN/Creatinine Ratio 20
[2019-12-23 10:49] LABS: Band Neutrophils # (Manual) 0.2 K/mm3; Basophils % (Manual) 0 % (0.0-1.8); Total Cells Counted 100
[2019-12-23 10:50] LABS: Anisocytosis 1+; Platelet Estimate Consistent w Auto
[2019-12-23 12:42] VITALS: BP 163/82
[2019-12-23] MEDS ORDERED: NEOMY 3.5 MG/BACIT 400 UNITS/POLY B 5000 UNITS/GM OINT PACKET TP ONE (15:57)
== END 2019-12-23 17:00 | disposition home health service (06) | DRG 872 ==
LOC: ED 10:12 → 3A 15:19 → OBSVTOIN 16:04
PROVIDERS: ADMIT Internal Medicine; ATTEND Internal Medicine
DX: A41.9 Sepsis, unspecified organism (principal); L03.116 Cellulitis of left lower limb; E87.2 Acidosis; E66.2 Morbid (severe) obesity with alveolar hypoventilation; Z68.41 Body mass index [BMI] 40.0-44.9, adult; N39.0 Urinary tract infection, site not specified; E11.9 Type 2 diabetes mellitus without complications; G89.4 Chronic pain syndrome; Z82.49 Family history of ischemic heart disease and other diseases of the circulatory system; Z83.3 Family history of diabetes mellitus; Z71.89 Other specified counseling; I87.2 Venous insufficiency (chronic) (peripheral); B96.1 Klebsiella pneumoniae [K. pneumoniae] as the cause of diseases classified elsewhere; Z74.01 Bed confinement status
CPT/HCPCS: 36415; 71045; 80048; 80202; 81001; 82010; 82140; 82805; 82962; 83880; 84484; 85007; 85025; 87040; 87076; 87086; 87186; 93005; 94640; 96365; 96375; G0378; A6250; J0692; J1170; J1642; J1644; J1940; J3370; J7030; J7040; Q9967